=== PATIENT | male | born 1960 | race Caucasian/White ===

== ENCOUNTER 2020-11-16 10:53 | Emergency (ER) | payer OTHER, MEDICARE ==
[~2020-11-16] VITALS: Ht 172.7 cm; Wt 88.2 kg
[2020-11-16 11:38] LABS: BASOPHILS # (AUTO) 0.1 X10'3 (0-0.2); BASOPHILS % (AUTO) 0.7 % (0-1); EOSINOPHILS # (AUTO) 0.5 X10'3 (0-0.9); EOSINOPHILS % (AUTO) 6.1 % (0-6); HEMATOCRIT 42.1 % (42.0-52.0); HEMOGLOBIN 14.3 g/dl (14.0-17.9); LYMPHOCYTES # (AUTO) 1.1 X10'3 (1.1-4.8); LYMPHOCYTES % (AUTO) 14.3 % (21-51); MEAN CORPUSCULAR HEMOGLOBIN 30.2 PG (27.0-31.0); MEAN CORPUSCULAR VOLUME 88.6 FL (78-98); MEAN PLATELET VOLUME 7.2 FL (7.4-10.4); MONOCYTES # (AUTO) 0.7 X10'3 (0-0.9); MONOCYTES % (AUTO) 8.5 % (2-12); NEUTROPHILS # (AUTO) 5.5 X10'3 (1.8-7.7); NEUTROPHILS % (AUTO) 70.4 % (42-75); PLATELET COUNT 302 X10'3 (140-440); RED BLOOD COUNT 4.75 X10'6 (4.70-6.10); RED CELL DISTRIBUTION WIDTH 14.2 % (11.5-14.5); WHITE BLOOD COUNT 7.9 X10'3 (4.5-11.0)
[2020-11-16 11:47] LABS: ALANINE AMINOTRANSFERASE 30 U/L (12-78); ALBUMIN 3.8 G/DL (3.4-5.0); ALBUMIN/GLOBULIN RATIO 1.1 (1.1-1.5); ALKALINE PHOSPHATASE 80 IU/L (46-116); ANION GAP 10 (8-16); ASPARTATE AMINO TRANSFERASE 17 U/L (10-37); BILIRUBIN,TOTAL 1.3 MG/DL (0.1-1.0); BLOOD UREA NITROGEN 24 MG/DL (7-18); BUN/CREATININE RATIO 22.6 (5.4-32.0); CALCIUM 8.8 MG/DL (8.5-10.1); CHLORIDE 103 MMOL/L (99-107); CREATININE 1.06 MG/DL (0.60-1.10); GLUCOSE 110 MG/DL (70-104); SODIUM 140 MMOL/L (135-145); TOTAL CARBON DIOXIDE 27.2 MMOL/L (24-32); TOTAL PROTEIN 7.3 G/DL (6.4-8.2); eGFR 71 ML/MIN
[2020-11-16 13:15] VITALS: BP 137/83
== END 2020-11-16 13:15 | disposition home or self-care (01) ==
LOC: ER 10:53
DX: R06.09 Other forms of dyspnea (principal); I10 Essential (primary) hypertension; R06.02 Shortness of breath; J44.9 Chronic obstructive pulmonary disease, unspecified; E11.9 Type 2 diabetes mellitus without complications; Z88.1 Allergy status to other antibiotic agents
CPT/HCPCS: 36415; 71045; 80053; 83735; 83880; 84484; 85025; 93005; 99285

== ENCOUNTER 2022-04-16 10:28 | Day surgery (SDC) | payer OTHER ==
[2022-04-11 11:13] LABS: BASOPHILS # (AUTO) 0.1 X10'3 (0-0.2); BASOPHILS % (AUTO) 0.6 % (0-1); EOSINOPHILS # (AUTO) 0.3 X10'3 (0-0.9); EOSINOPHILS % (AUTO) 3.2 % (0-6); HEMATOCRIT 41.9 % (42.0-52.0); LYMPHOCYTES # (AUTO) 0.8 X10'3 (1.1-4.8); LYMPHOCYTES % (AUTO) 9.3 % (21-51); MEAN CORPUSCULAR HEMOGLOBIN 29.8 PG (27.0-31.0); MEAN CORPUSCULAR HGB CONC 33.3 g/dL (33.0-36.5); MEAN CORPUSCULAR VOLUME 89.6 FL (78-98); MONOCYTES # (AUTO) 0.6 X10'3 (0-0.9); MONOCYTES % (AUTO) 6.9 % (2-12); NEUTROPHILS # (AUTO) 7.1 X10'3 (1.8-7.7); PLATELET COUNT 373 X10'3 (140-440); RED BLOOD COUNT 4.68 X10'6 (4.70-6.10); RED CELL DISTRIBUTION WIDTH 14.1 % (11.5-14.5); WHITE BLOOD COUNT 8.9 X10'3 (4.5-11.0)
[2022-04-11 11:23] LABS: APTT 29 SECONDS (22-32)
[2022-04-11 11:26] LABS: ANION GAP 6 (8-16); BLOOD UREA NITROGEN 22 MG/DL (7-18); BUN/CREATININE RATIO 19.8 (5.4-32.0); CALCIUM 9.5 MG/DL (8.5-10.1); CHLORIDE 104 MMOL/L (99-107); CHOL/HDL RATIO 2.8 (0.00-4.99); CHOLESTEROL 150 MG/DL (0-200); CREATININE 1.11 MG/DL (0.60-1.10); GLUCOSE 113 MG/DL (70-104); HDL CHOLESTEROL 54 MG/DL (35-60); LDL CHOLESTEROL 87 MG/DL (50-100); POTASSIUM 4.3 MMOL/L (3.5-5.1); SODIUM 139 MMOL/L (135-145); TRIGLYCERIDES 53 MG/DL (20-135); eGFR 67 ML/MIN
[~2022-04-16] VITALS: Ht 172.7 cm; Wt 86.1 kg
[2022-04-16] VITALS (9 sets, daily range): BP systolic 89–142; BP diastolic 57–89
[2022-04-16] MEDS ORDERED: GABA600T13 PO (10:53)
[2022-04-16] MEDS ORDERED: LISI20TA28 PO (10:54)
[2022-04-16] MEDS ORDERED: normal saline 1,000 ML IV SCH (10:55)
[2022-04-16] MEDS ORDERED: LORazepam 0.5 MG tablet PO PRN (10:55)
[2022-04-16] MEDS ORDERED: diphenhydrAMINE 25mg capsule PO PRN (10:55)
[2022-04-16] MEDS ORDERED: METFORMIN 750 MG (10:56)
[2022-04-16] MEDS ORDERED: CETI10TA14 (10:57)
[2022-04-16] MEDS ORDERED: MYCO250C46 PO (10:58)
[2022-04-16] MEDS ORDERED: MELO-102 PO (10:58)
[2022-04-16] MEDS ORDERED: HYDR-3965 PO (10:59)
[2022-04-16] MEDS ORDERED: CHOL100017 PO (11:00)
[2022-04-16] MEDS ORDERED: CHLO118L3 TOP (11:00)
[2022-04-16] MEDS ORDERED: DOCU100C40 PO (11:01)
[2022-04-16] MEDS ORDERED: APAP (11:02)
[2022-04-16] MEDS ORDERED: verapamil 2.5 mg/ml inj IV ONE (12:28)
[2022-04-16] MEDS ORDERED: nitroGLYCERIN-Tridil 50MG/D5W 250 ML IV ONE (12:28)
[2022-04-16] MEDS ORDERED: midazolam 1 mg/ML 2ml injection ONE (12:28)
[2022-04-16] MEDS ORDERED: LIDOcaine 1% (10mg/ml) 2ml vial ONE (12:29)
[2022-04-16] MEDS ORDERED: heparin 1,000unit/ml 10ml vial 10 ML ONE (12:29)
[2022-04-16] MEDS ORDERED: iohexol 350MG/ML 100ml bottle IV ONE (12:29)
[2022-04-16] MEDS ORDERED: fentaNYL/PF 50MCG/1 ML 2ML syringe ONE (12:29)
[2022-04-16] MEDS ORDERED: LIDOcaine 1% 30ml preserv. free vial ONE (13:11)
--- NOTE | 2022-04-16 13:45 | NUR ---
Bedside report received from RADHA Pantoja. Patient returned from [employer]. Radial site stable with vasc band in place. No bleeding or hematoma noted. Vital signs stable. NSR on electronic device monitor. No ectopy noted.
[2022-04-16] MEDS ORDERED: proCHLORperazine 10 MG/2 ml inj IV PRN (13:55)
[2022-04-16] MEDS ORDERED: HYDROcodone/acetaminophen 10/325mg tab PO PRN (13:55)
[2022-04-16] MEDS ORDERED: ondansetron/PF 4mg/2ml inj IV PRN (13:55)
[2022-04-16] MEDS ORDERED: HYDROcodone/acetaminophen 5mg/325mg tablet PO PRN (13:55)
[2022-04-16 16:34] LABS: ISTAT HGB ART 12.9 g/dl (14.0-17.9); ISTAT Hct ART 38 %PCV (42-52); ISTAT O2 SATURATION ARTERIAL 90 % (95-98); ISTAT SOURCE ART
[2022-04-16 16:35] LABS: ISTAT Hct MIX 39 %PCV (42-52); ISTAT O2 SATURATION MIX VENOUS 49 % (60-80); ISTAT SOURCE VEN
== END 2022-04-16 16:55 | disposition home or self-care (01) ==
LOC: SSTAY O 10:28
PROVIDERS: ATTEND Student in an Organized Health Care Education/Training Program
DX: R94.39 Abnormal result of other cardiovascular function study (principal); I27.20 Pulmonary hypertension, unspecified; E11.22 Type 2 diabetes mellitus with diabetic chronic kidney disease; N18.9 Chronic kidney disease, unspecified; I12.9 Hypertensive chronic kidney disease with stage 1 through stage 4 chronic kidney disease, or unspecified chronic kidney disease; Z79.01 Long term (current) use of anticoagulants; Z79.899 Other long term (current) drug therapy; Z98.890 Other specified postprocedural states; Z91.040 Latex allergy status; Z88.8 Allergy status to other drugs, medicaments and biological substances
CPT/HCPCS: 36415; 80048; 80061; 82803; 82948; 85014; 85025; 85610; 85730; 93005; 93460; 99152; 99153; A6258; C1769; C1894; J1644; J2250; J3010; J3490; J7030; Q0163; Q9967; A4615; A4620; A6402